=== PATIENT | female | born 1970 | race African-American/Black ===

== ENCOUNTER 2016-10-03 19:54 | Emergency (ER) | payer OTHER ==
--- NOTE | 2016-10-03 20:28 | ED ---
General Adult HPI - General Chief complaint: Nausea/Vomiting/Diarrhea Stated complaint: Congestion Time Seen by Provider: 10/03/16 20:12 Source: patient, RN notes reviewed Mode of arrival: ambulatory Limitations: no limitations - History of Present Illness Initial comments: Patient is a 46-year-old female presents to the emergency room for evaluation of sinus congestion. Patient states she has been experiencing these symptoms for the past 3-4 days. Patient states she has been taking irob-[id number] sinus medications, Flonase and netti pots with no relief of symptoms. Patient states she's having severe facial pain and headache. Patient states that she is up to date on her immunization's besides the influenza vaccine. Patient denies nausea or vomiting. Patient denies ear pain or throat pain. Patient also states that she has been having diarrhea for the past day. Patient denies any significant abdominal pain. Patient denies blood in stools. Patient denies abnormal discoloration of stools. Patient denies recent travel outside of the country. Patient denies contacts. Patient denies any new foods. Patient denies fevers or chills. Patient denies chest pain or shortness of breath. Patient denies cough. - Related Data Home Medications Medication Instructions Recorded Confirmed Hydrochlorothiazide [Hydrodiuril] 50 mg PO DAILY 07/07/14 10/03/16 Ibuprofen [Motrin] 800 mg PO TID PRN 07/07/14 10/03/16 Loratadine [Claritin] 10 mg PO DAILY 07/07/14 10/03/16 amLODIPine BESYLATE [Norvasc] 10 mg PO DAILY 07/07/14 10/03/16 Fluticasone Nasal [place] [Flonase 1 spr EA NOSTRIL DAILY 10/03/16 10/03/16 Nasal [place]] Naproxen 500 mg PO Q12HR PRN 10/03/16 10/03/16 metFORMIN HCL [Glucophage] 500 mg PO DAILY 10/03/16 10/03/16 Previous Rx's Medication Instructions Recorded Azithromycin [Zithromax Z-pack] 250 mg PO DIRECTED #6 tab 10/03/16 Allergies Allergy/AdvReac Type Severity Reaction Status Date / Time lisinopril Allergy lip Verified 10/03/16 20:45 swelling Review of Systems ROS Statement: Those systems with pertinent positive or pertinent negative responses have been documented in the HPI. ROS Other: All systems not noted in ROS Statement are negative. Past Medical History Past Medical History: Diabetes Mellitus, Hypertension Additional Past Medical History / Comment(s): back pain History of Any Multi-Drug Resistant Organisms: None Reported Past Surgical History: Section, Cholecystectomy Past Anesthesia/Blood Transfusion Reactions: No Reported Reaction Past Psychological History: No Psychological Hx Reported Smoking Status: Current some day smoker Past Alcohol Use History: None Reported Past Drug Use History: None Reported General Exam - General Exam Comments Initial Comments: Sitting in exam room, no distress. Limitations: no limitations General appearance: alert, in no apparent distress Head exam: Present: atraumatic, normocephalic, normal inspection Eye exam: Present: normal appearance ENT exam: Present: mucous membranes moist, TM's normal bilaterally, normal external ear exam, other (Pain on palpating over the frontal and bilateral maxillary sinuses.) Neck exam: Present: normal inspection, full ROM. Absent: tenderness, lymphadenopathy Respiratory exam: Present: normal lung sounds bilaterally. Absent: respiratory distress Cardiovascular Exam: Present: regular rate, normal rhythm, normal heart sounds GI/Abdominal exam: Present: soft, normal bowel sounds. Absent: distended, tenderness, guarding, rebound, rigid Extremities exam: Present: normal inspection Back exam: Present: normal inspection Neurological exam: Present: alert, oriented X3, CN II-XII intact, normal gait Psychiatric exam: Present: normal affect, normal mood Skin exam: Present: warm, dry, intact, normal color. Absent: rash Course Vital Signs 10/03/16 20:03 Temperature 97.7 F Pulse Rate 87 Respiratory 20 Rate Blood Pressure 123/84 O2 Sat by Pulse 97 Oximetry Medical Decision Making - Medical Decision Making Patient is a 46-year-old female presents to the emergency room for evaluation of severe sinus congestion. Influenza negative. Sending patient home with azithromycin for treatment of sinusitis. Advised patient to follow-up with her primary care provider in 24-48 hours for reevaluation. Patient states she understands everything that was discussed with her. Return parameters discussed. Case discussed with Dr. Medina. - Lab Data Lab Results 10/03/16 Range/Units 20:30 Influenza Type A RNA Not Detected (Not Detectd) Influenza Type B (PCR) Not Detected (Not Detectd) Disposition Clinical Impression: Sinusitis, Diarrhea Disposition: HOME SELF-CARE Condition: Good Instructions: Rhinosinusitis (ED), Acute Diarrhea (ED) Additional Instructions: Take antibiotics as directed. Continue with Flonase and pqjq-ksu-[id number] decongestants. Pepto-Bismol as needed for diarrhea. Please follow up with primary care provider in 1-2 days. If any new symptom arises or symptoms worsen , return to ER as soon as possible. Prescriptions: Azithromycin [Zithromax Z-pack] 250 mg PO DIRECTED #6 tab Referrals: Julia Cisneros MD [Primary Care Provider] - 1-2 days Time of Disposition: 21:18
[2016-10-03 22:52] VITALS: BP 128/72; PULSE 76; RESP 18; TEMP 97.6
== END 2016-10-03 22:00 | disposition home or self-care (01) ==
LOC: EC 19:54
DX: R19.7 Diarrhea, unspecified (principal); J32.8 Other chronic sinusitis; E11.9 Type 2 diabetes mellitus without complications; I10 Essential (primary) hypertension; F17.200 Nicotine dependence, unspecified, uncomplicated; Z88.8 Allergy status to other drugs, medicaments and biological substances; Z79.84 Long term (current) use of oral hypoglycemic drugs; Z79.899 Other long term (current) drug therapy
CPT/HCPCS: 87502; 99284

== ENCOUNTER → 2017-02-09 | Outpatient (CLI) | payer OTHER ==
--- NOTE | 2017-02-09 14:49 | XR ---
EXAMINATION TYPE: XR femur RT , 4 VIEWS DATE OF EXAM ORDERED: 02/09/2017 HISTORY: R52 R thigh pain. COMPARISON: None. FINDINGS: No fracture, dislocation or other acute osseous lesion is seen. IMPRESSION: NO ACUTE OSSEOUS LESION.
--- NOTE | 2017-02-09 14:50 | XR ---
EXAMINATION TYPE: XR lumbar spine 2 or 3V , 3 VIEWS DATE OF EXAM ORDERED: 02/09/2017 HISTORY: M54.5 low back pain. COMPARISON: None. FINDINGS: There has been a previous cholecystectomy. Vertebral body height and alignment are maintained. There is no evidence of spondylolysis or spondylo listhesis. The facets are unremarkable. The pedicles are intact. IMPRESSION: NORMAL LUMBAR SPINE.
== END ==
LOC: RADXRMAIN 14:11
PROVIDERS: ATTEND Emergency Medicine
DX: M65.851 Other synovitis and tenosynovitis, right thigh (principal); M54.5 Low back pain
CPT/HCPCS: 72100

== ENCOUNTER 2017-04-23 09:31 | Emergency (ER) | payer OTHER ==
[2017-04-23 09:51] VITALS: BP 131/88; PULSE 92; RESP 18; TEMP 97.9
--- NOTE | 2017-04-23 10:23 | ED ---
General Adult HPI - General Chief complaint: ENT Stated complaint: SORE THROAT, CONGESTION Time Seen by Provider: 04/23/17 10:03 Source: patient, RN notes reviewed Mode of arrival: ambulatory Limitations: no limitations - History of Present Illness Initial comments: Patient is a 46-year-old female who presents emergency room today with a chief complaint of increased rhinorrhea with some cough congestion over the last 5 days. Patient does admit that she's had some pressure ears as well. She missed a sore throat when she swallows. She states that she's been trying to cough up some phlegm but nothing has come up. She denies any complaints or associated symptoms. Patient denies any recent fever, chills, shortness of breath, chest pain, back pain, abdominal pain, nausea or vomiting, numbness or tingling, dysuria or hematuria, constipation or diarrhea, headaches or visual changes, or any other complaints. - Related Data Home Medications Medication Instructions Recorded Confirmed Hydrochlorothiazide [Hydrodiuril] 50 mg PO DAILY 07/07/14 10/03/16 Ibuprofen [Motrin] 800 mg PO TID PRN 07/07/14 10/03/16 Loratadine [Claritin] 10 mg PO DAILY 07/07/14 10/03/16 amLODIPine BESYLATE [Norvasc] 10 mg PO DAILY 07/07/14 10/03/16 Fluticasone Nasal [place] [Flonase 1 spr EA NOSTRIL DAILY 10/03/16 10/03/16 Nasal [place]] Naproxen 500 mg PO Q12HR PRN 10/03/16 10/03/16 metFORMIN HCL [Glucophage] 500 mg PO DAILY 10/03/16 10/03/16 Previous Rx's Medication Instructions Recorded Azithromycin [Zithromax Z-pack] 250 mg PO DIRECTED #6 tab 10/03/16 Amoxicillin/Potassium Clav 1 each PO Q12HR #20 tab 04/23/17 [Augmentin 875-125 Tablet] Fluticasone Propionate [Flonase 1 - 2 spray EA NOSTRIL DAILY 5 04/23/17 Allergy Relief] Days ml Allergies Allergy/AdvReac Type Severity Reaction Status Date / Time lisinopril Allergy lip Verified 04/23/17 09:51 swelling Review of Systems ROS Statement: Those systems with pertinent positive or pertinent negative responses have been documented in the HPI. ROS Other: All systems not noted in ROS Statement are negative. Past Medical History Past Medical History: Diabetes Mellitus, Hypertension Additional Past Medical History / Comment(s): back pain History of Any Multi-Drug Resistant Organisms: None Reported Past Surgical History: Section, Cholecystectomy Past Anesthesia/Blood Transfusion Reactions: No Reported Reaction Past Psychological History: No Psychological Hx Reported Smoking Status: Current some day smoker Past Alcohol Use History: None Reported Past Drug Use History: None Reported General Exam - General Exam Comments Initial Comments: General: The patient is awake and alert, in no distress, and does not appear acutely ill. Eye: Pupils are equal, round and reactive to light, extra-ocular movements are intact. No nystagmus. There is normal conjunctiva bilaterally. No signs of icterus. Ears, nose, mouth and throat: There are moist mucous membranes and no oral lesions. Tender to palpation over the maxillary frontal sinuses. Uvula midline. Patient swallows without any difficulty. Neck: The neck is supple, there is no tenderness or JVD. Cardiovascular: There is a regular rate and rhythm. No murmur, rub or gallop is appreciated. Respiratory: Lungs are clear to auscultation, respirations are non-labored, breath sounds are equal. No wheezes, stridor, rales, or rhonchi. Musculoskeletal: Normal ROM, no tenderness. Strength 5/5. Sensation intact. Pulses equal bilaterally 2+. Neurological: A&O x 3. CN II-XII intact, There are no obvious motor or sensory deficits. Coordination appears grossly intact. Speech is normal. Skin: Skin is warm and dry and no rashes or lesions are noted. Psychiatric: Cooperative, appropriate mood & affect, normal judgment. Limitations: no limitations Course Vital Signs 04/23/17 09:49 Temperature 97.9 F Pulse Rate 92 Respiratory 18 Rate Blood Pressure 131/88 O2 Sat by Pulse 98 Oximetry Medical Decision Making - Medical Decision Making Patient will be treated for sinus infection. Patient will be discharged from the [facility] family doctor return if any symptoms increase or worsen Disposition Clinical Impression: Acute sinusitis Disposition: HOME SELF-CARE Condition: Good Instructions: Sinusitis (ED) Additional Instructions: Please use medication as discussed. Please follow-up with family doctor in the next 2 days of symptoms have not improved. Please return to emergency room if the symptoms increase or worsen or for any other concerns. Prescriptions: Amoxicillin/Potassium Clav [Augmentin 875-125 Tablet] 1 each PO Q12HR #20 tab Fluticasone Propionate [Flonase Allergy Relief] 1 - 2 spray EA NOSTRIL DAILY 5 Days ml Referrals: Julia Cisneros MD [Primary Care Provider] - 1-2 days Time of Disposition: 10:20
== END 2017-04-23 10:35 | disposition home or self-care (01) ==
LOC: EC 09:31
DX: J01.90 Acute sinusitis, unspecified (principal); E11.9 Type 2 diabetes mellitus without complications; I10 Essential (primary) hypertension; F17.200 Nicotine dependence, unspecified, uncomplicated; Z79.84 Long term (current) use of oral hypoglycemic drugs; Z79.51 Long term (current) use of inhaled steroids; Z79.899 Other long term (current) drug therapy; Z88.8 Allergy status to other drugs, medicaments and biological substances
CPT/HCPCS: 99282

== ENCOUNTER 2017-07-19 08:22 | Emergency (ER) | payer OTHER ==
[2017-07-19 08:40] VITALS: BP 123/70; PULSE 88; RESP 20; TEMP 98.5
--- NOTE | 2017-07-19 08:50 | ED ---
URI HPI - General Chief Complaint: Upper Respiratory Infection Stated Complaint: Poss Sinus Infection Time Seen by Provider: 07/19/17 08:41 Source: patient, RN notes reviewed Mode of arrival: ambulatory Limitations: no limitations - History of Present Illness Initial Comments: This is a 46-year-old female who complains of cough, congestion and headache which began 5 days ago. The patient states that her cough has been productive, and she has vomited a few times since the symptom onset. Tylenol and Motrin have helped relieve some of the sinus pressure and headache symptoms. She also complains of rhinorrhea and "ear fullness." She denies nausea, diarrhea, and abdominal pain. - Related Data Home Medications Medication Instructions Recorded Confirmed Hydrochlorothiazide [Hydrodiuril] 50 mg PO DAILY 07/07/14 07/19/17 Ibuprofen [Motrin] 800 mg PO TID PRN 07/07/14 07/19/17 Loratadine [Claritin] 10 mg PO DAILY 07/07/14 07/19/17 amLODIPine BESYLATE [Norvasc] 10 mg PO DAILY 07/07/14 07/19/17 metFORMIN HCL [Glucophage] 500 mg PO DAILY 10/03/16 07/19/17 Previous Rx's Medication Instructions Recorded Fluticasone Propionate [Flonase 1 - 2 spray EA NOSTRIL DAILY 5 04/23/17 Allergy Relief] Days ml Amoxicillin/Potassium Clav 1 tab PO Q12HR #20 tab 07/19/17 [Augmentin 875-125 Tablet] Allergies Allergy/AdvReac Type Severity Reaction Status Date / Time lisinopril Allergy lip Verified 07/19/17 08:52 swelling Review of Systems ROS Statement: Those systems with pertinent positive or pertinent negative responses have been documented in the HPI. ROS Other: All systems not noted in ROS Statement are negative. Past Medical History Past Medical History: Diabetes Mellitus, Hypertension Additional Past Medical History / Comment(s): back pain History of Any Multi-Drug Resistant Organisms: None Reported Past Surgical History: Section, Cholecystectomy Past Anesthesia/Blood Transfusion Reactions: No Reported Reaction Past Psychological History: No Psychological Hx Reported Smoking Status: Current some day smoker Past Alcohol Use History: None Reported Past Drug Use History: None Reported General Exam Limitations: no limitations General appearance: alert, in no apparent distress Head exam: Present: atraumatic, normocephalic, normal inspection Eye exam: Present: normal appearance, PERRL, EOMI. Absent: scleral icterus, conjunctival injection, periorbital swelling ENT exam: Present: normal exam, normal oropharynx, mucous membranes dry, mucous membranes moist, TM's normal bilaterally, normal external ear exam Neck exam: Present: normal inspection, full ROM. Absent: tenderness, meningismus, lymphadenopathy Respiratory exam: Present: rhonchi, other (R rhonchi auscultated in left lung phillips and are worse when patient coughs.). Absent: respiratory distress, wheezes, chest wall tenderness, accessory muscle use, decreased breath sounds Cardiovascular Exam: Present: regular rate, normal rhythm, normal heart sounds. Absent: systolic murmur, diastolic murmur, rubs, gallop, clicks GI/Abdominal exam: Present: soft, normal bowel sounds. Absent: distended, tenderness, guarding, rebound, rigid Neurological exam: Present: alert, oriented X3, CN II-XII intact Psychiatric exam: Present: normal affect, normal mood Skin exam: Present: warm, dry, intact, normal color. Absent: rash Course Vital Signs 07/19/17 08:39 Temperature 98.5 F Pulse Rate 88 Respiratory 20 Rate Blood Pressure 123/70 O2 Sat by Pulse 99 Oximetry Medical Decision Making - Medical Decision Making 46-year-old female presents emergency department for cough congestion runny nose nausea wall. Patient's discharge revealed there is no pneumonia evident. Patient does have chronic sinus issues has seen ENT in the past. She is recommended follow-up with PCP and ENT she'll be treated for acute sinusitis with Augmentin. Patient will continue aexn-oyz-zyiakwk cough and cold medications. Return parameters were discussed. Disposition Clinical Impression: Acute sinusitis Disposition: HOME SELF-CARE Condition: Stable Instructions: Sinusitis (ED) Additional Instructions: Please return to the Emergency Department if symptoms worsen or any other concerns. Prescriptions: Amoxicillin/Potassium Clav [Augmentin 875-125 Tablet] 1 tab PO Q12HR #20 tab Referrals: Julia Cisneros MD [Primary Care Provider] - 1-2 days Time of Disposition: 09:06
--- NOTE | 2017-07-19 09:13 | XR ---
EXAMINATION TYPE: XR chest 2V DATE OF EXAM: 07/19/2017 COMPARISON: NONE HISTORY: Cough and congestion. TECHNIQUE: Frontal and lateral views of the chest are obtained. FINDINGS: Lateral view is suboptimal due to patient's large body habitus. There is no focal air space opacity, pleural effusion, or pneumothorax seen. The cardiac silhouette size is mildly enlarged. The osseous structures are intact. IMPRESSION: Mild cardiomegaly without acute pulmonary process.
== END 2017-07-19 09:11 | disposition home or self-care (01) ==
LOC: EC 08:22
DX: J01.90 Acute sinusitis, unspecified (principal); R11.10 Vomiting, unspecified; E11.9 Type 2 diabetes mellitus without complications; I10 Essential (primary) hypertension; F17.200 Nicotine dependence, unspecified, uncomplicated; Z88.8 Allergy status to other drugs, medicaments and biological substances; Z79.84 Long term (current) use of oral hypoglycemic drugs; Z79.899 Other long term (current) drug therapy
CPT/HCPCS: 71046; 99283

== ENCOUNTER 2017-10-09 18:25 | Observation (INO) | payer OTHER ==
[2017-10-09] MEDS ORDERED: SODIUM CHLORIDE 0.9% 1,000 ML IV STA (19:45)
[2017-10-09] MEDS ORDERED: ASPIRIN 81 MG PO STA (19:45)
[2017-10-09] MEDS ORDERED: NITROGLYCERIN SL TABS 0.4 MG TAB SUBLINGUAL PRN (19:45)
--- NOTE | 2017-10-09 20:15 | ED ---
General Adult HPI - General Chief complaint: Chest Pain Stated complaint: Throat Pain, Chest Pain Time Seen by Provider: 10/09/17 19:43 Source: patient, RN notes reviewed, old records reviewed Mode of arrival: ambulatory Limitations: no limitations - History of Present Illness Initial comments: This is a 47-year-old female the ER for evasive chest pain. Patient has history of diabetes hypo-pressure cholesterol. Patient coming in for anterior chest pain remote respiratory infection, sore throat. No recent cough or congestion recent fevers or travel history. No prior history of evaluation for chest pain - Related Data Home Medications Medication Instructions Recorded Confirmed Hydrochlorothiazide [Hydrodiuril] 50 mg PO DAILY 07/07/14 10/09/17 Ibuprofen [Motrin] 800 mg PO TID PRN 07/07/14 10/09/17 Loratadine [Claritin] 10 mg PO DAILY 07/07/14 10/09/17 amLODIPine BESYLATE [Norvasc] 10 mg PO DAILY 07/07/14 10/09/17 metFORMIN HCL [Glucophage] 500 mg PO DAILY 10/03/16 10/09/17 Ergocalciferol (Vitamin D2) 50,000 unit PO Q30D 10/09/17 10/09/17 [Vitamin D2] Allergies Allergy/AdvReac Type Severity Reaction Status Date / Time lisinopril Allergy lip Verified 10/09/17 19:43 swelling Review of Systems ROS Statement: Those systems with pertinent positive or pertinent negative responses have been documented in the HPI. ROS Other: All systems not noted in ROS Statement are negative. Past Medical History Past Medical History: Diabetes Mellitus, Hypertension Additional Past Medical History / Comment(s): back pain History of Any Multi-Drug Resistant Organisms: None Reported Past Surgical History: Section, Cholecystectomy Past Anesthesia/Blood Transfusion Reactions: No Reported Reaction Past Psychological History: No Psychological Hx Reported Smoking Status: Former smoker Past Alcohol Use History: Occasional Past Drug Use History: None Reported General Exam Limitations: no limitations General appearance: alert, in no apparent distress Head exam: Present: atraumatic, normocephalic, normal inspection Eye exam: Present: normal appearance, PERRL, EOMI. Absent: scleral icterus, conjunctival injection, periorbital swelling ENT exam: Present: normal exam, mucous membranes moist Neck exam: Present: normal inspection. Absent: tenderness, meningismus, lymphadenopathy Respiratory exam: Present: normal lung sounds bilaterally. Absent: respiratory distress, wheezes, rales, rhonchi, stridor Cardiovascular Exam: Present: regular rate, normal rhythm, normal heart sounds. Absent: systolic murmur, diastolic murmur, rubs, gallop, clicks GI/Abdominal exam: Present: soft, normal bowel sounds. Absent: distended, tenderness, guarding, rebound, rigid Extremities exam: Present: normal inspection, full ROM, normal capillary refill. Absent: tenderness, pedal edema, joint swelling, calf tenderness Back exam: Present: normal inspection Neurological exam: Present: alert, oriented X3, CN II-XII intact Psychiatric exam: Present: normal affect, normal mood Skin exam: Present: warm, dry, intact, normal color. Absent: rash Course Vital Signs 10/09/17 10/09/17 18:25 20:07 Temperature 98.8 F Pulse Rate 93 69 Respiratory 20 18 Rate Blood Pressure 138/83 120/81 O2 Sat by Pulse 96 100 Oximetry - Reevaluation(s) Reevaluation #1: 10/09/17 20:14 Patient still remains a chest pain, clutching center of her chest Medical Decision Making - Medical Decision Making 47 female the ER with positive chest pain, patient be admitted for cardiac observation - Radiology Data Radiology results: report reviewed (Chest x-rays negative for acute disease), image reviewed Critical Care Time Critical Care Time: Yes Total Critical Care Time: 31 Disposition Clinical Impression: Chest pain Disposition: ADMITTED IP TO THIS [facility] Condition: Undetermined Instructions: Chest Pain (ED) Is patient prescribed a controlled substance at d/c from ED?: No Referrals: Julia Cisneros MD [Primary Care Provider] - 1-2 days
[2017-10-09 20:26] LABS: Basophils # (A) 0.1 k/uL (0-0.2); Basophils % (A) 1 %; Eosinophils # (A) 0.5 k/uL (0-0.7); Eosinophils % (A) 4 %; HCT 39.2 % (34.0-46.0); Lymphocytes # (A) 4.8 k/uL (1.0-4.8); Lymphocytes % (A) 40 %; MCH 29.8 pg (25.0-35.0); MCHC 35.8 g/dL (31.0-37.0); MCV 83.3 fL (80.0-100.0); Mean Platelet Volume 7.1; Monocytes # (A) 0.4 k/uL (0-1.0); Monocytes % (A) 3 %; Neutrophils % (A) 50 %; Platelet Count 306 k/uL (150-450); RBC 4.71 m/uL (3.80-5.40); RDW 14.6 % (11.5-15.5); WBC 11.9 k/uL (3.8-10.6)
[2017-10-09 20:37] LABS: ALT 33 U/L (9-52); AST 26 U/L (14-36); Albumin 4.4 g/dL (3.5-5.0); Alkaline Phosphatase 103 U/L (38-126); Anion Gap 13 mmol/L; Blood Urea Nitrogen 15 mg/dL (7-17); Carbon Dioxide 25 mmol/L (22-30); Chloride 103 mmol/L (98-107); Glucose 90 mg/dL (74-99); Lipase 95 U/L (23-300); Magnesium 1.7 mg/dL (1.6-2.3); Potassium 3.4 mmol/L (3.5-5.1); Sodium 141 mmol/L (137-145); Total Bilirubin 0.5 mg/dL (0.2-1.3); Total Protein 7.2 g/dL (6.3-8.2)
[2017-10-09 20:39] LABS: Creatine Kinase 248 U/L (30-135)
[2017-10-09 20:43] LABS: INR 0.9 (<1.2); Prothrombin Time 9.3 sec (9.0-12.0)
[2017-10-09 20:47] LABS: Partial Thromboplastin Time 20.9 sec (22.0-30.0)
[2017-10-09 20:52] LABS: Creatine Kinase MB 0.9 ng/mL (0.0-2.4); Troponin I <0.012 ng/mL (0.000-0.034)
[2017-10-09] MEDS ORDERED: METOPROLOL TARTRATE 25 MG TAB PO SCH (21:00)
--- NOTE | 2017-10-09 21:23 | XR ---
EXAMINATION TYPE: XR chest 2V DATE OF EXAM: 10/09/2017 COMPARISON: Chest x-ray July 19, 2017. HISTORY: Chest pain per order. TECHNIQUE: Frontal and lateral views of the chest are obtained. FINDINGS: There is no focal air space opacity, pleural effusion, or pneumothorax seen. The cardiac silhouette size is enlarged. The osseous structures are intact. IMPRESSION: Cardiomegaly without acute pulmonary process. No significant change from prior.
[2017-10-09 21:51] VITALS: BMI 40.3
[2017-10-09] MEDS ORDERED: MORPHINE SULFATE 4 MG/ML SYRINGE IVP PRN (22:01)
[2017-10-09] MEDS ORDERED: ONDANSETRON 4 MG/2 ML VIAL IVP PRN (22:01)
[2017-10-09] MEDS ORDERED: MAG HYDROX/AL HYDROX/SIMETH 30 ML CUP PO PRN (22:02)
[2017-10-09] MEDS ORDERED: IBUPROFEN 400 MG TAB PO PRN (22:02)
[2017-10-09] MEDS ORDERED: IPRATROPIUM-ALBUTEROL 3 ML NEB INHALATION PRN (22:04)
[2017-10-10 03:10] LABS: Cholesterol 149 mg/dL (<200); HDL Cholesterol 42 mg/dL (40-60); LDL Cholesterol,Calculated 79 mg/dL (0-99); Triglycerides 142 mg/dL (<150)
[2017-10-10 03:20] LABS: Creatine Kinase 216 U/L (30-135)
[2017-10-10 03:33] LABS: Creatine Kinase MB 0.9 ng/mL (0.0-2.4); Troponin I <0.012 ng/mL (0.000-0.034)
[2017-10-10 08:04] LABS: Glucose,Whole Blood 97 mg/dL (75-99)
[2017-10-10] MEDS: IPRATROPIUM-ALBUTEROL 3 ML NEB INHALATION SCH ×2 (08:10→11:53)
--- NOTE | 2017-10-10 08:10 | P.CRDCN ---
History of Present Illness Consult date: 10/10/17 Chief complaint: Chest pain History of present illness: This is a pleasant 47-year-old -[place] female patient with a past medical history significant for diabetes and hypertension presented to the hospital complaining of chest discomfort. It started this past Monday when she was doing some walking. Since then the pain did not go away. She describes it as a burning sensation in the middle of the chest with sometimes radiation to the arms. She was experiencing also shortness of breath and sweating with the discomfort. The patient does not have any history of documented coronary artery disease but she does have diabetes as well as hypertension. Never seen by a receptionist clerk in the past. She underwent an EKG and that revealed sinus rhythm was nonspecific changes. 2 sets of cardiac enzymes were checked and came in to be unremarkable. The patient continues to have very mild chest discomfort since she was admitted to the hospital. She used to smoke but she quit smoking several years ago. No significant family history of premature coronary artery disease. Past Medical History Past Medical History: Diabetes Mellitus, Hypertension Additional Past Medical History / Comment(s): back pain History of Any Multi-Drug Resistant Organisms: None Reported Past Surgical History: Section, Cholecystectomy Past Anesthesia/Blood Transfusion Reactions: No Reported Reaction Smoking Status: Former smoker - Past Family History Mother Family Medical History: Cancer Additional Family Medical History / Comment(s): Breast CA Father Additional Family Medical History / Comment(s): Cirrosis of the liver Medications and Allergies Home Medications Medication Instructions Recorded Confirmed Type Hydrochlorothiazide [Hydrodiuril] 50 mg PO DAILY 07/07/14 10/09/17 History Ibuprofen [Motrin] 800 mg PO TID PRN 07/07/14 10/09/17 History Loratadine [Claritin] 10 mg PO DAILY 07/07/14 10/09/17 History amLODIPine BESYLATE [Norvasc] 10 mg PO DAILY 07/07/14 10/09/17 History metFORMIN HCL [Glucophage] 500 mg PO DAILY 10/03/16 10/09/17 History Ergocalciferol (Vitamin D2) 50,000 unit PO Q30D 10/09/17 10/09/17 History [Vitamin D2] Allergies Allergy/AdvReac Type Severity Reaction Status Date / Time lisinopril Allergy lip Verified 10/09/17 21:38 swelling Physical Exam Vitals: Vital Signs Temp Pulse Pulse Resp BP BP Pulse Ox 10/10/17 05:07 108/65 10/10/17 04:00 16 10/10/17 03:45 98.1 F 69 16 92/55 96 10/09/17 23:56 16 10/09/17 23:47 98.8 F 78 16 91/55 100 10/09/17 22:00 16 10/09/17 21:41 97.8 F 66 16 108/69 100 10/09/17 21:13 99.9 F H 78 18 102/61 97 10/09/17 20:07 69 18 120/81 100 10/09/17 18:25 98.8 F 93 20 138/83 96 Intake and Output 10/09/17 10/10/17 10/10/17 22:59 06:59 14:59 Other: Weight 106.5 kg - Constitutional General appearance: no acute distress - Respiratory Respiratory: bilateral: CTA - Cardiovascular Rhythm: regular Heart sounds: normal: S1, S2 Results 10/09/17 20:05 10/09/17 20:05 Cardiac Enzymes 10/09/17 10/09/17 10/10/17 Range/Units 20:05 20:05 02:26 AST 26 (14-36) U/L CK-MB (CK-2) 0.9 0.9 (0.0-2.4) ng/mL Troponin I <0.012 <0.012 (0.000-0.034) ng/mL Coagulation 10/09/17 Range/Units 20:05 PT 9.3 (9.0-12.0) sec APTT 20.9 L (22.0-30.0) sec Lipids 10/10/17 Range/Units 02:26 Triglycerides 142 (<150) mg/dL Cholesterol 149 (<200) mg/dL HDL Cholesterol 42 (40-60) mg/dL CBC 10/09/17 Range/Units 20:05 WBC 11.9 H (3.8-10.6) k/uL RBC 4.71 (3.80-5.40) m/uL Hgb 14.0 (11.4-16.0) gm/dL Hct 39.2 (34.0-46.0) % Plt Count 306 (150-450) k/uL Comprehensive Metabolic Panel 04/30/18 Range/Units 20:05 Sodium 141 (137-145) mmol/L Potassium 3.4 L (3.5-5.1) mmol/L Chloride 103 (98-107) mmol/L Carbon Dioxide 25 (22-30) mmol/L BUN 15 (7-17) mg/dL Creatinine 0.79 (0.52-1.04) mg/dL Glucose 90 (74-99) mg/dL Calcium 10.0 (8.4-10.2) mg/dL AST 26 (14-36) U/L ALT 33 (9-52) U/L Alkaline Phosphatase 103 (38-126) U/L Total Protein 7.2 (6.3-8.2) g/dL Albumin 4.4 (3.5-5.0) g/dL Current Medications Generic Name Dose Route Start Last Admin Trade Name Freq PRN Reason Stop Dose Admin Al Hydroxide/Mg Hydroxide 30 ml 10/09/17 22:02 Maalox PO Q4HR PRN GI Upset Albuterol/Ipratropium 3 ml 10/09/17 22:04 Duoneb 0.5 Mg-3 Mg/3 Ml Soln INHALATION RT-Q2H PRN Shortness Of Breath Or Wheezing Albuterol/Ipratropium 3 ml 10/10/17 08:00 Duoneb 0.5 Mg-3 Mg/3 Ml Soln INHALATION RT-QID [facility] Aspirin 325 mg 10/10/17 09:00 Aspirin PO DAILY [facility] Atorvastatin Calcium 80 mg 10/10/17 09:00 Lipitor PO DAILY [facility] Hydrochlorothiazide 50 mg 10/10/17 09:00 Hydrodiuril PO DAILY [facility] Ibuprofen 400 mg 10/09/17 22:02 Motrin PO TID PRN Pain Insulin Aspart 0 unit 10/10/17 07:30 Novolog SQ ACHS [facility] Protocol Loratadine 10 mg 10/10/17 09:00 Claritin PO DAILY [facility] Metformin HCl 500 mg 10/10/17 09:00 Glucophage PO DAILY [facility] Metoprolol Tartrate 25 mg 10/09/17 21:00 10/09/17 21:53 Lopressor PO 25 mg BID SANDI Administration Morphine Sulfate 2 mg 10/09/17 22:01 10/09/17 22:16 Morphine Sulfate (Inj) IVP 2 mg Q4HR PRN Administration Pain Nitroglycerin 0.4 mg 10/09/17 19:45 Nitrostat SUBLINGUAL Q5M PRN Chest Pain Ondansetron HCl 4 mg 10/09/17 22:01 Zofran IVP Q6HR PRN Nausea And Vomiting Intake and Output 10/09/17 10/10/17 10/10/17 22:59 06:59 14:59 Other: Weight 106.5 kg 10/09/17 20:05 10/09/17 20:05 Assessment and Plan Assessment: Assessment #1 chest discomfort still ongoing and seems to be mild in intensity #2 multiple risk factors for CAD including diabetes and hypertension #3 previous history of smoking Plan #1 the patient was ruled out for acute coronary event #2 I am going to pursue with a stress test to rule out any severe underlying coronary artery disease #3 obtain an echocardiogram was Doppler #4 follow-up with the patient. Thank you for allowing us participate in her care and we'll continue following up with the patient
[2017-10-10] MEDS: INSULIN ASPART 100 UNIT/ML 1 ML 10 ML VIAL SQ SCH ×2 (08:13→13:57)
[2017-10-10 08:43] VITALS: RESP 18; TEMP 97.8
[2017-10-10] MEDS ORDERED: ATORVASTATIN 80 MG TAB PO SCH (09:00)
[2017-10-10] MEDS ORDERED: metFORMIN 500 MG TAB PO SCH (09:00)
[2017-10-10] MEDS ORDERED: ASPIRIN 81 MG PO SCH (09:00)
[2017-10-10] MEDS ORDERED: LORATADINE 10 MG TAB PO SCH (09:00)
[2017-10-10] MEDS ORDERED: HYDROCHLOROTHIAZIDE 50 MG TAB PO SCH (09:00)
[2017-10-10] MEDS ORDERED: ASPIRIN 325 MG TAB PO SCH (09:00)
[2017-10-10] MEDS ORDERED: DOBUTamine DRIP for NUC MED 250 MG in DEXTROSE/WATER 1 250ML.BAG IV ONE (10:11)
[2017-10-10] MEDS ORDERED: DOBUTamine 250 MG in DEXTROSE 5% IN WATER 250 ML IV ONE ×2 (10:15)
[2017-10-10] MEDS ORDERED: MORPHINE ORAL SOLN 10 MG/5 ML CUP PO PRN (10:22)
[2017-10-10] MEDS ORDERED: METOPROLOL TARTRATE 5 MG/5 ML VIAL IVP ONE (10:31)
[2017-10-10] MEDS ORDERED: ATROPINE SULFATE 0.1 MG/ML 10ML SYRINGE ONE (10:31)
--- NOTE | 2017-10-10 11:51 | ECHOF ---
Referral Reason: MEASUREMENTS -------- HEIGHT: 162.6 cm WEIGHT: 106.1 kg BP: IVSd: 0.9 cm (0.6 - 1.1) LVIDd: 4.6 cm (3.9 - 5.3) LVPWd: 0.9 cm (0.6 - 1.1) IVSs: 1.6 cm LVIDs: 2.3 cm LVPWs: 1.9 cm LAESV Index (A-L): 26.60 ml/m Ao Diam: 3.1 cm (2.0 - 3.7) AV Cusp: 2.4 cm (1.5 - 2.6) LA Diam: 3.5 cm (2.7 - 3.8) MV EXCURSION: 20.477 mm (> 18.000) MV EF SLOPE: 127 mm/s (70 - 150) EPSS: 0.8 cm MV E Shon: 1.05 m/s MV DecT: 237 ms MV A Shon: 0.73 m/s MV E/A Ratio: 1.44 RAP: 5.00 mmHg RVSP: 30.43 mmHg FINDINGS -------- Sinus rhythm. This was a technically good study. The left ventricular size is normal. Left ventricular wall thickness is normal. Overall left vent ricular systolic function is normal with, an EF between 55 - 60 %. The right ventricle is normal in size and function. The left atrium is normal in size. The right atrium is normal in size. The aortic valve is trileaflet, and appears structurally normal. No aortic stenosis or regurgitation. The mitral valve leaflets are mildly thickened. There is trace mitral regurgitation. Mild tricuspid regurgitation present. The right ventricular systolic pressure, as measured by Doppl er, is 30.43mmHg. Pulmonic valve appears structurally normal. The aortic root size is normal. The pericardium is normal. CONCLUSIONS -------- 1. Sinus rhythm. 2. This was a technically good study. 3. The left ventricular size is normal. 4. Left ventricular wall thickness is normal. 5. Overall left ventricular systolic function is normal with, an EF between 55 - 60 %. 6. The right ventricle is normal in size and function. 7. The left atrium is normal in size. 8. The right atrium is normal in size. 9. The aortic valve is trileaflet, and appears structurally normal. No aortic stenosis or regurgitati on. 10. The mitral valve leaflets are mildly thickened. 11. There is trace mitral regurgitation. 12. Mild tricuspid regurgitation present. 13. The right ventricular systolic pressure, as measured by Doppler, is 30.43mmHg. 14. Pulmonic valve appears structurally normal. 15. The aortic root size is normal. 16. The pericardium is normal. STATE PATROL OFFICER: Ally Metzger RDCS
[2017-10-10 12:00] VITALS: BP 90/53; PULSE 71
--- NOTE | 2017-10-10 12:03 | ECHOS ---
STRESS ECHOCARDIOGRAM DATE OF SERVICE: 10/09/2017 INDICATIONS: Chest pain. BASELINE HEART RATE: 68 BASELINE BLOOD PRESSURE: 88/47 MAXIMUM HEART RATE: 146 MAXIMUM BLOOD PRESSURE: 121/62 85% MPHR: 148 100% MPHR: 174 MAXIMUM STAGE REACHED: II TOTAL EXERCISE TIME: 8:37 CLINICAL INFORMATION: STRESS DATA: Pretesting physical examination showed a heart rate of 68, pressure is 88/47 mmHg. Baseline EKG showed sinus mechanism. Dobutamine infusion at a dose of 10 mcg/kg per minute was initiated and increased to 30 mcg/kilos per minute over 3 stages. We gave the patient 2 mg of atropine to enhance the heart rate. With atropine and dobutamine, the patient achieved a max heart rate of 146, which is about 83% of maximum predicted heart rate. Maximum blood pressure was 121/62 mmHg. Clinically, the patient did not have any symptoms of chest pain or discomfort and the EKG did not show any significant ST or T-wave abnormalities consistent with ischemia. ECHOCARDIOGRAM IMAGES: On echocardiogram images from parasternal long axis view, parasternal short axis view, apical 4 chamber and apical 2 chamber view were obtained as the baseline images, at low dose dobutamine infusion, the heart rate as well as on recovery. The echocardiogram images did not show any evidence of any obvious wall motion abnormalities concerning for ischemia. There was good augmentation in all segments of the LV. CONCLUSION: 1. Normal EKG in response to dobutamine. 2. Normal echocardiogram in response to dobutamine as well. MMODL / IJN: [id number] /
[2017-10-10 12:19] LABS: Glucose,Whole Blood 112 mg/dL (75-99)
[2017-10-10 17:41] LABS: Hemoglobin A1C 6.3 % (4.0-6.0)
--- NOTE | 2017-10-11 00:28 | P.HPIM ---
History of Present Illness H&P Date: 10/10/17 Chief Complaint: Chest pain This is a pleasant 47-year-old -Congolese female patient with a past medical history significant for diabetes and hypertension presented to the hospital complaining of chest discomfort. It started this past Monday when she was doing some walking. Since then the pain did not go away. She describes it as a burning sensation in the middle of the chest with sometimes radiation to the arms. She was experiencing also shortness of breath and sweating with the discomfort. The patient does not have any history of documented coronary artery disease but she does have diabetes as well as hypertension. Never seen by a solid waste manager in the past. She underwent an EKG and that revealed sinus rhythm was nonspecific changes. 2 sets of cardiac enzymes were checked and came in to be unremarkable. The patient continues to have very mild chest discomfort since she was admitted to the hospital. Chest x-ray showed cardiomegaly without acute cardiopulmonary process. She used to smoke but she quit smoking several years ago. No significant family history of premature coronary artery disease.Diabetes Mellitus, Hypertension Patient does take Motrin 800 mg 3 times a day when necessary for pain. Review of Systems Constitutional: Patient denies any fever or chills . No generalized weakness or weight loss. Abdomen: Patient denied nausea vomiting and diarrhea and abdominal pain. Cardiovascular: Burning chest pain. . No short of breath no palpitations. Respiratory: patient denied any cough is from production. No shortness of breath Neurologic: Patient denied any numbness or tingling headache. Musculoskeletal: Patient denies any complaints of joint swelling or deformity. Skin: Negative Psychiatric: Negative Endocrine: No heat or cold intolerance. No recent weight gain. Genitourinary: No dysuria or hematuria. All other 14 point ROS negative except the above Past Medical History Past Medical History: Diabetes Mellitus, Hypertension Additional Past Medical History / Comment(s): back pain History of Any Multi-Drug Resistant Organisms: None Reported Past Surgical History: Section, Cholecystectomy Past Anesthesia/Blood Transfusion Reactions: No Reported Reaction Smoking Status: Former smoker - Past Family History Mother Family Medical History: Cancer Additional Family Medical History / Comment(s): Breast CA Father Additional Family Medical History / Comment(s): Cirrosis of the liver Medications and Allergies Home Medications Medication Instructions Recorded Confirmed Type Hydrochlorothiazide [Hydrodiuril] 50 mg PO DAILY 07/07/14 10/09/17 History Loratadine [Claritin] 10 mg PO DAILY 07/07/14 10/09/17 History amLODIPine BESYLATE [Norvasc] 10 mg PO DAILY 07/07/14 10/09/17 History metFORMIN HCL [Glucophage] 500 mg PO DAILY 10/03/16 10/09/17 History Ergocalciferol (Vitamin D2) 50,000 unit PO Q30D 10/09/17 10/09/17 History [Vitamin D2] Allergies Allergy/AdvReac Type Severity Reaction Status Date / Time lisinopril Allergy lip Verified 10/09/17 21:38 swelling Physical Exam Vitals: Vital Signs Temp Pulse Pulse Pulse Resp BP BP 10/10/17 08:00 97.8 F 68 18 95/56 10/10/17 05:07 108/65 10/10/17 04:00 16 10/10/17 03:45 98.1 F 69 16 92/55 10/09/17 23:56 16 10/09/17 23:47 98.8 F 78 16 91/55 10/09/17 22:00 16 10/09/17 21:41 97.8 F 66 16 108/69 10/09/17 21:13 99.9 F H 78 18 102/61 10/09/17 20:07 69 18 120/81 10/09/17 18:25 98.8 F 93 20 138/83 Pulse Ox 10/10/17 08:00 98 10/10/17 05:07 10/10/17 04:00 10/10/17 03:45 96 10/09/17 23:56 10/09/17 23:47 100 10/09/17 22:00 10/09/17 21:41 100 10/09/17 21:13 97 10/09/17 20:07 100 10/09/17 18:25 96 Intake and Output 10/09/17 10/10/17 10/10/17 22:59 06:59 14:59 Other: Voiding Method Toilet Weight 106.5 kg PHYSICAL EXAMINATION: Patient is lying in the bed comfortably, no acute distress, awake alert and oriented.. HEENT: Normocephalic. Neck is supple. Pupils reactive. Nostrils clear. Oral cavity is moist. Ears reveal no drainage. Neck reveals no JVD, carotid bruits, or thyromegaly. CHEST EXAMINATION: Trachea is central. Symmetrical expansion. Lung phillips clear to auscultation and percussion. CARDIAC: Normal S1, S2 with no gallops. No murmurs ABDOMEN: Soft. Bowel sounds normal. No organomegaly. No abdominal bruits. Extremities: reveal no edema. No clubbing or cyanosis Neurologically awake, alert, oriented x3 with well-coordinated movements. No focal deficits noted Skin: No rash or skin lesions. Psychiatric: Coperative. Nonsuicidal Musculoskeletal: No joint swelling or deformity. Normal range of motion. Results CBC & Chem 7: 10/09/17 20:05 10/09/17 20:05 Labs: Abnormal Lab Results - Last 24 Hours (Table) 10/09/17 10/09/17 10/09/17 Range/Units 20:05 20:05 20:05 WBC 11.9 H (3.8-10.6) k/uL APTT (22.0-30.0) sec Potassium 3.4 L (3.5-5.1) mmol/L Total Creatine Kinase 248 H (30-135) U/L 10/09/17 10/10/17 Range/Units 20:05 02:26 WBC (3.8-10.6) k/uL APTT 20.9 L (22.0-30.0) sec Potassium (3.5-5.1) mmol/L Total Creatine Kinase 216 H (30-135) U/L Thrombosis Risk Factor Assmnt - DVT/VTE Prophylaxis DVT/VTE Prophylaxis: Pharmacologic Prophylaxis ordered - Choose All That Apply Each Factor Represents 1 point: Age 41-60 years Thrombosis Risk Factor Assessment Total Risk Factor Score: 1 Thrombosis Risk Factor Assessment Level: Low Risk Assessment and Plan Assessment: Atypical chest pain. Ruled out acute coronary syndrome Hypertension. Currently hypotensive Diabetes type 2 Previous history of smoking Morbid obesity BMI 40.3 DVT prophylaxis plan: Patient will be continued on telemetry monitoring. Troponin 2 negative. Patient was seen by cardiology and recommended double with stress echocardiogram. 2-D echo showed normal ejection fraction and no wall motion abnormalities noted. Further recommendations based on the clinical course. Time with Patient: Greater than 30
--- NOTE | 2017-10-11 00:30 | P.DS ---
Providers Date of admission: 10/09/17 19:45 Expected date of discharge: 10/10/17 Attending physician: Yelitza Weller Consults: 10/09/17 19:45 Consult Physician Urgent Consulting Provider: Kuldip Clement Consult Reason/Comments: cp Do you want consulting provider notified?: Yes [facility] Course: Discharge diagnosis Atypical chest pain. Ruled out acute coronary syndrome. Possible GERD-like symptoms. Will hold metformin Hypertension. Currently hypotensive. Patient was advised to hold medications and check blood pressure at home and follow with her primary care physician. Diabetes type 2 Previous history of smoking Morbid obesity BMI 40.3 DVT prophylaxis Hospital course This is a pleasant 47-year-old -[place] female patient with a past medical history significant for diabetes and hypertension presented to the hospital complaining of chest discomfort. It started this past Monday when she was doing some walking. Since then the pain did not go away. She describes it as a burning sensation in the middle of the chest with sometimes radiation to the arms. She was experiencing also shortness of breath and sweating with the discomfort. The patient does not have any history of documented coronary artery disease but she does have diabetes as well as hypertension. Never seen by a sleep lab technologist in the past. She underwent an EKG and that revealed sinus rhythm was nonspecific changes. 2 sets of cardiac enzymes were checked and came in to be unremarkable. The patient continues to have very mild chest discomfort since she was admitted to the hospital. Chest x-ray showed cardiomegaly without acute cardiopulmonary process. She used to smoke but she quit smoking several years ago. No significant family history of premature coronary artery disease.Diabetes Mellitus, Hypertension Patient does take Motrin 800 mg 3 times a day when necessary for pain. Patient was continued on telemetry monitoring. Troponin 2 negative. Patient was seen by cardiology and recommended double with stress echocardiogram. 2-D echo showed normal ejection fraction and no wall motion abnormalities noted. Daughter with stress echocardiogram showed normal response. Otherwise patient did improve symptomatically and is stable to be discharged home. Discharge physical examination was done Vital Signs - 24 hr 10/10/17 10/10/17 10/10/17 03:45 04:00 05:07 Temperature 98.1 F Pulse Rate [ 69 Bilateral Supine Dorsalis Pedis] Pulse Rate [ Right Pulse Oximetery] Respiratory 16 16 Rate Blood Pressure 92/55 108/65 [Right Arm] O2 Sat by Pulse 96 Oximetry 10/10/17 10/10/17 08:00 11:59 Temperature 97.8 F 97.8 F Pulse Rate [ Bilateral Supine Dorsalis Pedis] Pulse Rate [ 68 71 Right Pulse Oximetery] Respiratory 18 18 Rate Blood Pressure 95/56 90/53 [Right Arm] O2 Sat by Pulse 98 100 Oximetry Patient Condition at Discharge: Undetermined Plan - Discharge Summary New Discharge Prescriptions: Continue amLODIPine BESYLATE [Norvasc] 10 mg PO DAILY Loratadine [Claritin] 10 mg PO DAILY Hydrochlorothiazide [Hydrodiuril] 50 mg PO DAILY metFORMIN HCL [Glucophage] 500 mg PO DAILY Ergocalciferol (Vitamin D2) [Vitamin D2] 50,000 unit PO Q30D Discontinued Ibuprofen [Motrin] 800 mg PO TID PRN PRN Reason: Pain Discharge Medication List Hydrochlorothiazide [Hydrodiuril] 50 mg PO DAILY 07/07/14 [History] Loratadine [Claritin] 10 mg PO DAILY 07/07/14 [History] amLODIPine BESYLATE [Norvasc] 10 mg PO DAILY 07/07/14 [History] metFORMIN HCL [Glucophage] 500 mg PO DAILY 10/03/16 [History] Ergocalciferol (Vitamin D2) [Vitamin D2] 50,000 unit PO Q30D 10/09/17 [History] Follow up Appointment(s)/Referral(s): Maged Sharif MD [STAFF PHYSICIAN] - 10/30/17 3:45 pm Julia Cisneros MD [Primary Care Provider] - 1-2 days Patient Instructions/Handouts: Chest Pain (ED) Discharge Disposition: HOME SELF-CARE
== END 2017-10-10 15:04 | disposition home or self-care (01) ==
LOC: EC 18:25 → 3OBS 19:45
PROVIDERS: ADMIT Hospitalist; ATTEND Hospitalist
DX: R07.89 Other chest pain (principal); E11.9 Type 2 diabetes mellitus without complications; I11.9 Hypertensive heart disease without heart failure; M54.9 Dorsalgia, unspecified; I95.9 Hypotension, unspecified; E66.01 Morbid (severe) obesity due to excess calories; Z68.41 Body mass index [BMI] 40.0-44.9, adult; Z88.8 Allergy status to other drugs, medicaments and biological substances; Z90.49 Acquired absence of other specified parts of digestive tract; Z79.84 Long term (current) use of oral hypoglycemic drugs; Z79.899 Other long term (current) drug therapy; Z87.891 Personal history of nicotine dependence; Z80.3 Family history of malignant neoplasm of breast
CPT/HCPCS: 96374; 99291; 36415; 93005; 93306; 93351; 80061; 80053; 82550 ×2; 82553 ×2; 83690; 83735; 84484 ×2; 85025; 85610; 85730; 83036; 71046; G0378 ×2; J2270; J1250; J0461

== ENCOUNTER 2021-08-11 02:22 | Emergency (ER) | payer OTHER ==
[2021-08-11 02:29] VITALS: BP 136/94; PULSE 88; RESP 18; TEMP 97.9
[2021-08-11] MEDS ORDERED: FAMOTIDINE 20 MG TAB PO STA (03:39)
[2021-08-11] MEDS ORDERED: diphenhydrAMINE 50 MG CAP PO STA (03:39)
[2021-08-11] MEDS ORDERED: predniSONE 20 MG TAB PO STA (03:40)
--- NOTE | 2021-08-11 03:48 | ED ---
Allergic Reaction HPI - General Chief complaint: Allergic Reaction Stated complaint: allergic reaction Time Seen by Provider: 08/11/21 03:30 Source: patient Mode of arrival: ambulatory Limitations: no limitations - History of Present Illness Initial Comments: Patient is a 50-year-old woman who presents to have evaluation for hives developing to the face and right forearm. The patient had applied a new [id number] cream just prior. Patient is not having any other symptoms. No oral swelling, difficulty with speech or swallowing. No dyspnea, cough or wheezing. MD Complaint: hives -: hour(s) Exposure: other Symptoms: rash, itching Severity: mild Treatment Prior to Arrival: none Previous Allergy History: none - Related Data Home Medications Medication Instructions Recorded Confirmed Loratadine [Claritin] 10 mg PO DAILY 07/07/14 10/09/17 amLODIPine BESYLATE [Norvasc] 10 mg PO DAILY 07/07/14 10/09/17 hydroCHLOROthiazide [Hydrodiuril] 50 mg PO DAILY 07/07/14 10/09/17 metFORMIN HCL [Glucophage] 500 mg PO DAILY 10/03/16 10/09/17 Ergocalciferol (Vitamin D2) 50,000 unit PO Q30D 10/09/17 10/09/17 [Vitamin D2] Previous Rx's Medication Instructions Recorded Famotidine [Pepcid] 20 mg PO BID #14 tablet 08/11/21 diphenhydrAMINE HCL [Benadryl] 25 mg PO Q6H PRN #40 tab 08/11/21 predniSONE [Deltasone] 20 mg PO BID #8 tab 08/11/21 Allergies Allergy/AdvReac Type Severity Reaction Status Date / Time lisinopril Allergy lip Verified 08/11/21 02:29 swelling Review of Systems ROS Statement: Those systems with pertinent positive or pertinent negative responses have been documented in the HPI. ROS Other: All systems not noted in ROS Statement are negative. Constitutional: Denies: fever Eyes: Denies: eye pain, eye discharge ENT: Denies: throat pain, congestion Respiratory: Denies: cough, dyspnea, wheezes Cardiovascular: Denies: chest pain, palpitations Gastrointestinal: Denies: abdominal pain, nausea, vomiting, diarrhea Skin: Reports: as per HPI, rash, pruritus Neurological: Denies: headache Past Medical History Past Medical History: Diabetes Mellitus, Hypertension Additional Past Medical History / Comment(s): back pain History of Any Multi-Drug Resistant Organisms: None Reported Past Surgical History: Section, Cholecystectomy Past Anesthesia/Blood Transfusion Reactions: No Reported Reaction Past Psychological History: No Psychological Hx Reported Smoking Status: Current every day smoker Past Alcohol Use History: Occasional Past Drug Use History: None Reported - Past Family History Mother Family Medical History: Cancer Additional Family Medical History / Comment(s): Breast CA Father Additional Family Medical History / Comment(s): Cirrosis of the liver General Exam Limitations: no limitations General appearance: alert, in no apparent distress Head exam: Present: atraumatic, normocephalic Respiratory exam: Present: normal lung sounds bilaterally. Absent: respiratory distress, wheezes, rales, rhonchi, stridor Cardiovascular Exam: Present: regular rate, normal rhythm, normal heart sounds. Absent: systolic murmur, diastolic murmur, rubs, gallop GI/Abdominal exam: Present: soft. Absent: distended, tenderness, guarding, rebound Neurological exam: Present: alert Skin exam: Present: warm, dry, intact, normal color, urticaria Course Vital Signs 08/11/21 08/11/21 02:27 04:02 Temperature 97.9 F Pulse Rate 88 Respiratory 18 Rate Blood Pressure 136/94 O2 Sat by Pulse 100 100 Oximetry Disposition Clinical Impression: Allergic reaction Disposition: HOME SELF-CARE Condition: Good Instructions (If sedation given, give patient instructions): Urticaria (ED) Prescriptions: diphenhydrAMINE HCL [Benadryl] 25 mg PO Q6H PRN #40 tab PRN Reason: Itching predniSONE [Deltasone] 20 mg PO BID #8 tab Famotidine [Pepcid] 20 mg PO BID #14 tablet Is patient prescribed a controlled substance at d/c from ED?: No Referrals: Julia Cisneros MD [Primary Care Provider] - 1-2 days
== END 2021-08-11 04:04 | disposition home or self-care (01) ==
LOC: EC 02:22
DX: T78.40XA Allergy, unspecified, initial encounter (principal); E11.9 Type 2 diabetes mellitus without complications; I10 Essential (primary) hypertension; F17.200 Nicotine dependence, unspecified, uncomplicated; Z79.84 Long term (current) use of oral hypoglycemic drugs; Z79.899 Other long term (current) drug therapy
CPT/HCPCS: 99283; J7512